=== PATIENT | female | born 1960 | race African-American/Black ===

== ENCOUNTER 2016-03-18 18:36 | Emergency (ER) | payer SELFPAY ==
[~2016-03-18] VITALS: Ht 167.6 cm; Wt 100.0 kg
[~2016-03-18 18:36] MED LIST: AMLO10TA2 PO; ASPI1TAB69 PO; GARL350T; MOBI15TA PO; NAPR250T PO; ULTR50TA5 PO
[2016-03-18 18:38] VITALS: BP 182/118; PULSE 100; RESP 20; TEMP 98; O2SAT 97
[2016-03-18] MEDS ORDERED: EXCETAB2 PO (19:12)
[2016-03-18] MEDS ORDERED: MOBI15TA PO (19:14)
[2016-03-18] MEDS ORDERED: ULTR50TA5 PO (19:14)
--- NOTE | 2016-03-18 19:25 | PD ---
HPI Chief Complaint: Pain: Acute or Chronic Time Seen by Provider: 19:21 Travel History International Travel<30 days: No Contact w/Intl Traveler<30days: No Traveled to known affect area: No History of Present Illness HPI 55-year-old white female presents to emergency department with complains of acute exacerbation of chronic pain in her lower back and right hip. The patient states that she has a known history of arthritis in her hip and back. She was told that she needed a hip replacement. She had been in pain management but did not continue it when she lost her insurance. She also states that she had taken a leftover Lortab today because the pain was more severe. She denies any direct trauma. No recent illness. No acute bowel or bladder changes. Pain is moderate but can be severe. Worse with bending and movement. Some relief with Lortab. PFSH Past Medical History Narrative Medical Hep C, obesity, Hypertension, chronic back and hip pain Asthma: Yes Cardiovascular Problems: Yes (HTN) Diminished Hearing: No GERD: Yes Hepatitis: Yes (C) Hypertension: Yes Respiratory: Yes (ASTHMA) Tetanus Vaccination: < 5 Years Past Surgical History Narrative Surgical Gastric sleeve, hysterectomy Abdominal Surgery: Yes (GASTRIC SLEEVE) Hysterectomy: Yes (PARTIAL) Other Surgery: Yes (BARTHOLIN CYST REMOVAL) Family History Family Myocardial Infarction: Yes (GRANDMOTHER) Social History Alcohol Use: Yes (OCC) Tobacco Use: No Substance Use: No Allergies-Medications (Allergen,Severity, Reaction): Coded Allergies: Seafood (Verified Allergy, Severe, Hives, 01/20/16) Tetracycline (Verified Allergy, Severe, Rash, 01/20/16) Reported Meds & Prescriptions Reported Meds & Active Scripts Active Mobic (Meloxicam) 15 Mg Tab 15 Mg PO DAILY Ultram (Tramadol HCl) 50 Mg Tab 50 Mg PO Q6H PRN Amlodipine (Amlodipine Besylate) 10 Mg Tab 10 Mg PO DAILY Reported Excedrin Extra Strength (Zpahpwq-Qpaugleptagst-Bijstmuc) 250-250-65 Mg Tab 1 Tab PO ONCE PRN Review of Systems Except as stated in HPI: all other systems reviewed are Neg Physical Exam Narrative GENERAL: Well-developed, well-nourished in no apparent distress. Nontoxic appearing. HEAD: Normocephalic, atraumatic. EYES: Pupils equal round and reactive. Extraocular motions intact. No scleral icterus. No injection or drainage. ENT: Nose clear. Throat without erythema, tonsillar hypertrophy or exudate. Uvula midline. Airway patent. NECK: Trachea midline. Supple, nontender, moves head freely. No central bony tenderness or spasm. CARDIOVASCULAR: Regular rate and rhythm without murmurs, gallops, or rubs. RESPIRATORY: Clear to auscultation. Breath sounds equal bilaterally. No wheezes , rales, or rhonchi. GASTROINTESTINAL: Abdomen soft, non-tender, nondistended. No hepato-splenomegaly , or palpable masses. No guarding. EXTREMITIES: No clubbing, cyanosis, or edema. No joint tenderness. BACK: No central bony tenderness to palpation of the dorsal lumbar spine. She has pain in the right SI and right buttocks. She has decreased for flexion to 70. She is able to heel and toe stand. No saddle anesthesia. Without deformity. No flank tenderness. NEUROLOGICAL: Awake, alert and oriented x 3 .Cranial nerves grossly intact. Motor and sensory grossly within normal limits. Normal speech. Data Data Last Documented VS Vital Signs Date Time Temp Pulse Resp B/P Pulse Ox O2 Delivery O2 Flow Rate FiO2 03/18/16 18:38 98.0 100 20 182/118 97 Room Air Orders Amlodipine (Norvasc) (03/18/16 19:15) [facility] Medical Decision Making Medical Screen Exam Complete: Yes Emergency Medical Condition: Yes Medical Record Reviewed: Yes Differential Diagnosis MDM: High Differential diagnoses: AAA,Fracture, sprain, strain, HNP, nerve or vascular injury, epidural abscess, pilonidal cyst, pyelonephritis, UTI, nephrolithiasis, ureterolithiasis Narrative Course This is an acute exacerbation of chronic back pain. It is also noted that her blood pressure is elevated area she has not taken her daily dose of Norvasc today. She typically takes 10 mg at night. She is given a dose now. The patient has requested a shot of Decadron here in the ER. She is given 10 mg IM. Diagnosis Primary Impression: Acute exacerbation of chronic low back pain Additional Impressions: Chronic hip pain Qualified Code: M25.551 - Chronic hip pain, right Hypertension Qualified Code: I10 - Essential hypertension Patient Instructions: General Instructions Departure Forms: Tests/Procedures, Work Release Special Instructions: No work 2-3 days. Additional Instructions: Rest. Ice for the next 3 days followed by heat . Meloxicam and Ultram. Follow-up with a primary care doctor in one week. Return to the ER for emergencies. Med/Other Pt SpecificInfo: Prescription(s) given Scripts Meloxicam (Mobic)15 Mg Tab15 Mg PO DAILY #20 TAB Ref 0 Prov:Zara Tran DO 03/18/16 Tramadol (Ultram)50 Mg Tab50 Mg PO Q6H PRN (PAIN) #30 TAB Ref 0 Prov:Zara Tran DO 03/18/16 Disposition: 01 DISCHARGE HOME Condition: Stable Maurilio Cortez Mar 18, 2016 19:25
[2016-03-18] MEDS ORDERED: DEXAMETHASONE SOD PHOS 20 MG/5 ML VIAL IM ONE (19:45)
== END 2016-03-18 19:50 | disposition home or self-care (01) ==
LOC: NEPB 18:36
DX: M54.5 Low back pain (principal); M25.551 Pain in right hip; G89.29 Other chronic pain; I10 Essential (primary) hypertension
CPT/HCPCS: 96372; 99283; J1100

== ENCOUNTER 2016-04-12 17:17 | Emergency (ER) | payer OTHER ==
[~2016-04-12] VITALS: Ht 167.6 cm; Wt 100.0 kg
[~2016-04-12 17:17] MED LIST changes: -ASPI1TAB69 PO; +EXCETAB2 PO; -GARL350T; -NAPR250T PO
[2016-04-12 17:19] VITALS: BP 184/127; PULSE 104; RESP 14; TEMP 97.9; O2SAT 99
--- NOTE | 2016-04-12 18:46 | RADRPT ---
EXAM DATE/TIME: 04/12/2016 18:19 [facility] COMPARISON: No previous studies available for comparison. INDICATIONS : Right hip pain after fall, mostly when walking. MEDICAL HISTORY : None. SURGICAL HISTORY : None. ENCOUNTER: Initial ACUITY: 1 day PAIN SCORE: 5/10 LOCATION: Right hip. FINDINGS: Examination of the right hip was performed. There is moderate to severe osteoarthritis of the right hip. No acute fracture or dislocation. No bony destructive changes. CONCLUSION: 1. Moderate to severe osteoarthritis of the right hip. No acute bony abnormalities. Maurilio Franco MD on April 12, 2016 at 18:42 Board Certified Radiologist. This report was verified electronically.
--- NOTE | 2016-04-12 19:28 | PD ---
HPI Chief Complaint: Injury Time Seen by Provider: 19:28 Travel History International Travel<30 days: No Contact w/Intl Traveler<30days: No Traveled to known affect area: No History of Present Illness HPI 55-year-old female presents to the emergency department for evaluation of right hip pain. Patient states she has problems with her right hip and needs to have it replaced however today while at work she was helping to restrain a child when she fell over them landing on her right hip. Patient states that she has had significant pain since then. She has been ambulatory but it is painful. He rates the pain an 8 out of 10. Denies hitting her head. Alterations in sensation. She has no other symptoms to report. PFSH Past Medical History Asthma: Yes Cardiovascular Problems: Yes (HTN) Diminished Hearing: No GERD: Yes Hepatitis: Yes (C) Hypertension: Yes Respiratory: Yes (ASTHMA) Past Surgical History Abdominal Surgery: Yes (GASTRIC SLEEVE) Hysterectomy: Yes (PARTIAL) Other Surgery: Yes (BARTHOLIN CYST REMOVAL) Social History Alcohol Use: Yes (OCC) Tobacco Use: No Substance Use: No Allergies-Medications (Allergen,Severity, Reaction): Coded Allergies: Seafood (Verified Allergy, Severe, Hives, 04/12/16) Tetracycline (Verified Allergy, Severe, Rash, 04/12/16) Reported Meds & Prescriptions Reported Meds & Active Scripts Active Robaxin (Methocarbamol) 500 Mg Tab 500 Mg PO QID PRN Mobic (Meloxicam) 15 Mg Tab 15 Mg PO DAILY PRN Mobic (Meloxicam) 15 Mg Tab 15 Mg PO DAILY Ultram (Tramadol HCl) 50 Mg Tab 50 Mg PO Q6H PRN Amlodipine (Amlodipine Besylate) 10 Mg Tab 10 Mg PO DAILY Reported Excedrin Extra Strength (Fsqkbiy-Euzwbtlpvlnmf-Ozwdhimw) 250-250-65 Mg Tab 1 Tab PO ONCE PRN Review of Systems Except as stated in HPI: all other systems reviewed are Neg Physical Exam Narrative GENERAL: Well-nourished female patient, in no acute distress SKIN: Warm and dry. HEAD: Atraumatic. Normocephalic. EYES: Pupils equal and round. No scleral icterus. No injection or drainage. ENT: No nasal bleeding or discharge. Mucous membranes pink and moist. NECK: Trachea midline. No JVD. CARDIOVASCULAR: Regular rate and rhythm. No murmur appreciated. RESPIRATORY: No accessory muscle use. Clear to auscultation. Breath sounds equal bilaterally. GASTROINTESTINAL: Abdomen soft, non-tender, nondistended. Hepatic and splenic margins not palpable. MUSCULOSKELETAL: No obvious deformities. No clubbing. No cyanosis. No edema. Tenderness elicited palpation of the anterior lateral right hip. No deformity. Patient has full flexion, extension, and rotation of the right hip. No shortening or rotation of the affected extremity. Sensation intact distal extremity. NEUROLOGICAL: Awake and alert. No obvious cranial nerve deficits. Motor grossly within normal limits. Normal speech. PSYCHIATRIC: Appropriate mood and affect; insight and judgment normal. Data Data Last Documented VS Vital Signs Date Time Temp Pulse Resp B/P Pulse Ox O2 Delivery O2 Flow Rate FiO2 04/12/16 17:19 97.9 104 14 184/127 99 Room Air Orders Hip, Uni(4+Vws) Wo Ap Pelvis (04/12/16 ) Ketorolac Inj (Toradol Inj) (04/12/16 19:45) MDM Medical Decision Making Medical Screen Exam Complete: Yes Emergency Medical Condition: Yes Medical Record Reviewed: Yes Differential Diagnosis Hip fracture versus sprain versus contusion versus dislocation versus osteoarthritis Narrative Course 55 year female presents to emergency room for evaluation right hip pain. X-ray imaging is without acute bony abnormality. Patient is treated for pain. She does have elevated blood pressure. After pain is treated, it has decreased. Patient takes amlodipine at home. She is encouraged to take this and follow-up with her primary care provider. She agrees to return immediately with any acute worsening of symptoms. Diagnosis Primary Impression: Arthralgia of right hip Additional Impression: Elevated blood pressure Referrals: Primary Care Physician Patient Instructions: General Instructions, Hip Pain (ED) Additional Instructions: Ice and/or warm moist heat may help to alleviate symptoms Avoid activity that exacerbates pain Follow up with your primary care provider Return to the ED with acute worsening of symptoms Med/Other Pt SpecificInfo: Prescription(s) given Scripts Methocarbamol (Robaxin)500 Mg [id number] Mg PO QID PRN (MUSCLE SPASM) #20 TAB Ref 0 Prov:Tangela Coyne 04/12/16 Meloxicam (Mobic)15 Mg Tab15 Mg PO DAILY PRN (PAIN SCALE 1 TO 10) #14 TAB Ref 0 Prov:Tangela Coyne 2/7/17 Disposition: 01 DISCHARGE HOME Condition: Stable Coyne,Tangela [employer] Apr 12, 2016 19:28
[2016-04-12] MEDS ORDERED: KETOROLAC TROMETHAMINE 60 MG/2 ML (IM) VIAL IM ONE (19:45)
[2016-04-12] MEDS ORDERED: MOBI15TA PO (20:31)
[2016-04-12] MEDS ORDERED: ROBA500T PO (20:31)
== END 2016-04-12 21:51 | disposition home or self-care (01) ==
LOC: NEPB 17:17
DX: M25.551 Pain in right hip (principal); I10 Essential (primary) hypertension
CPT/HCPCS: 73503; 96372; 99283; J1885

== ENCOUNTER 2016-07-17 11:50 | Emergency (ER) | payer OTHER ==
[~2016-07-17 11:50] MED LIST changes: +ROBA500T PO
[2016-07-17 11:51] VITALS: BP 159/96; PULSE 74; RESP 16; TEMP 97.7; O2SAT 95
--- NOTE | 2016-07-17 12:00 | PD ---
HPI . Cough, clear sputum and sore throat for the past 3 days Chief Complaint: Cold / Flu Symptoms Time Seen by Provider: 11:57 Travel History International Travel<30 days: No Contact w/Intl Traveler<30days: No Traveled to known affect area: No History of Present Illness HPI 55-year-old female with history of asthma here with complaints of cough, clear sputum and a sore throat for the past 3 days. She tells me the sore throat actually started yesterday. She says she's been coughing frequently and thinks it may be smoke in the air causing this. She says she was wheezing at home. She does admit to smoking occasionally. She denies any fever or chills. She has no other complaints. PFSH Past Medical History Asthma: Yes Cardiovascular Problems: Yes (HTN) Diminished Hearing: No GERD: Yes Hepatitis: Yes (C) Hypertension: Yes Respiratory: Yes (ASTHMA) Past Surgical History Abdominal Surgery: Yes (GASTRIC SLEEVE) Hysterectomy: Yes (PARTIAL) Other Surgery: Yes (BARTHOLIN CYST REMOVAL) Social History Alcohol Use: Yes (OCC) Tobacco Use: Yes Substance Use: No Allergies-Medications (Allergen,Severity, Reaction): Coded Allergies: Seafood (Verified Allergy, Severe, Hives, 04/12/16) Tetracycline (Verified Allergy, Severe, Rash, 04/12/16) Reported Meds & Prescriptions Reported Meds & Active Scripts Active Proair Hfa 8.5 GM Inh (Albuterol Sulfate) 90 Mcg/Act Aer 2 Puff INH Q6H PRN 108 mcg/actuation Prednisone 50 Mg Tab 50 Mg PO DAILY Robaxin (Methocarbamol) 500 Mg Tab 500 Mg PO QID PRN Mobic (Meloxicam) 15 Mg Tab 15 Mg PO DAILY PRN Mobic (Meloxicam) 15 Mg Tab 15 Mg PO DAILY Ultram (Tramadol HCl) 50 Mg Tab 50 Mg PO Q6H PRN Amlodipine (Amlodipine Besylate) 10 Mg Tab 10 Mg PO DAILY Reported Excedrin Extra Strength (Tndundf-Dqijayuetgyfl-Dpdjyjps) 250-250-65 Mg Tab 1 Tab PO ONCE PRN Review of Systems General / Constitutional: No: Fever Eyes: No: Visual changes HENT: Positive: Sore Throat, No: Headaches Cardiovascular: No: Chest Pain or Discomfort Respiratory: Positive: Cough, Wheezing, No: Shortness of Breath Gastrointestinal: No: Abdominal Pain Genitourinary: No: Dysuria Musculoskeletal: No: Pain Skin: No Rash Neurologic: No: Weakness Psychiatric: No: Depression Endocrine: No: Polydipsia Hematologic/Lymphatic: No: Easy Bruising Physical Exam Narrative GENERAL: AAO x 3, no acute distress, Well-nourished, well-developed patient. SKIN: Warm and dry. No visible rashes or bruising. HEAD: Normocephalic and atraumatic. EYES: No scleral icterus. No injection or drainage. EOM intact, PERRLA ENT: No nasal drainage noted. Mucous membranes pink. Airway patent. No oropharynx abnormality. Note TM abnormality. NECK: Supple, trachea midline. No JVD. No lymphadenopathy CARDIOVASCULAR: Regular rate and rhythm without murmurs, gallops, or rubs. RESPIRATORY: Breath sounds equal bilaterally. No accessory muscle use. No rhonchi or rales. No wheezing GASTROINTESTINAL: Visual inspection normal EXTREMITIES: No cyanosis or edema. BACK: Nontender without obvious deformity. No CVA tenderness. PSYCH: AAO x 3, normal affect. Data Data Last Documented VS Vital Signs Date Time Temp Pulse Resp B/P Pulse Ox O2 Delivery O2 Flow Rate FiO2 07/17/16 11:51 97.7 74 16 159/96 95 MDM Medical Decision Making Medical Screen Exam Complete: Yes Emergency Medical Condition: Yes Medical Record Reviewed: Yes Differential Diagnosis Bronchitis, less likely influenza, less likely pneumonia Narrative Course In summary this is a 55-year-old female presents with cough with clear sputum and sore throat for the past several days. She does have a history of asthma. Examination is fairly unremarkable. I will go ahead and treat her for bronchitis with some prednisone. I recommend an inhaler since she is an asthmatic and does not have one. I recommended follow-up with her primary care provider. Patient verbalized understanding of instructions, questions were answered, and thanked me for their care. I advised them if their condition worsens, please return to the nearest emergency room for further care. Diagnosis Primary Impression: Acute bronchitis Qualified Code: J20.9 - Acute bronchitis, unspecified organism Patient Instructions: Acute Bronchitis (ED), General Instructions Additional Instructions: As we discussed the cough can last 6-8 weeks. Take medications as prescribed. If you are a smoker, try to quit. Follow up with your primary care provider. If you develop sudden onset or worsening of shortness or breath, please go to the nearest emergency room. Please return to emergency department if your symptoms return or worsen. Follow up with your primary care provider. Take medications as prescribed. Med/Other Pt SpecificInfo: Prescription(s) given Scripts Albuterol 8.5 GM Inh (Proair Hfa 8.5 GM Inh)90 Mcg/Act Aer2 Puff INH Q6H PRN ( SHORTNESS OF BREATH) #1 INHALER Ref 0 108 mcg/actuation Prov:Sherine Montero MD 07/17/16 Prednisone 50 Mg Tab50 Mg PO DAILY #5 TAB Prov:Sherine Montero MD 07/17/16 Disposition: 01 DISCHARGE HOME Condition: Stable Ronna Sin July 17, 2016 12:00
[2016-07-17] MEDS ORDERED: PRED50 PO (12:01)
[2016-07-17] MEDS ORDERED: ALBUAER3 INH (12:01)
[2016-07-17] MEDS ORDERED: HYDR-3535 PO (12:15)
== END 2016-07-17 12:20 | disposition home or self-care (01) ==
LOC: NEPK 11:50
DX: J02.9 Acute pharyngitis, unspecified (principal)
CPT/HCPCS: 99283